=== PATIENT | female | born 1955 | race Caucasian/White ===

== ENCOUNTER 2016-07-27 10:08 | Emergency (ER) | payer MEDICAID ==
[~2016-07-27] VITALS: Ht 157.5 cm; Wt 50.0 kg
[2016-07-27 10:56] LABS: BASOPHILS % 0.7 % (0.0-2.0); EOSINOPHILS % 0.2 % (0.0-5.0); HEMATOCRIT. 38.4 % (36.0-48.0); HEMOGLOBIN. 12.8 g/dL (12.0-16.0); LYMPHOCYTES % 43.7 % (20.0-50.0); MEAN CORPUSCULAR HEMOGLOBIN 28.9 pg (28.0-32.0); MEAN CORPUSCULAR HGB CONC 33.3 g/dL (31.0-37.0); MEAN PLATELET VOLUME 8.3 fl (7.4-10.4); MONOCYTES % 6.5 % (2.0-8.0); NEUTROPHILS % 48.9 % (40.0-76.0); PLATELET 245 x1000/uL (130-400); RED BLOOD CELL COUNT 4.42 mill/uL (4.2-5.4); RED CELL DISTRIBUTION WIDTH 13.7 % (11.6-14.6); WHITE BLOOD COUNT 7.2 x1000/uL (4.5-11.0)
[2016-07-27 11:02] LABS: CHLORIDE 105 mEq/L (98-107); INDEX HEMOLYSI 1 (1-3); INDEX ICTERIC 1 (1-4); INDEX LIPEMIC 1 (1-3)
[2016-07-27 11:08] LABS: ALBUMIN 3.9 g/dL (3.4-5.0); ANION GAP 12; CALCIUM 9.3 mg/dL (8.5-10.1); CARBON DIOXIDE 29 mEq/L (21-32); UREA NITROGEN BLOOD 15 mg/dL (7-21)
[2016-07-27 11:09] LABS: ALANINE AMINOTRANSFERASE 24 IU/L (13-61); eGFR > 60 mL/min (>60)
[2016-07-27 11:18] VITALS: BP 158/82
== END 2016-07-27 12:22 | disposition home or self-care (01) ==
LOC: ER 12:12
DX: R07.89 Other chest pain (principal); Z98.51 Tubal ligation status
CPT/HCPCS: 36415; 71010; 80053; 85025; 93005; 99285; Z7610